=== PATIENT | male | born 2000 | race American Indian/Alaskan Native ===

== ENCOUNTER → 2021-01-27 12:45 | Emergency (ER) | payer MEDICAID ==
--- NOTE | 2021-01-27 15:55 | Emergency Department Report ---
Blank Doc - Documentation Documentation: I did not participate in the care of this patient.
== END | disposition left against medical advice (07) ==
LOC: ED 12:45
DX: Z04.1 Encounter for examination and observation following transport accident (principal); Z53.21 Procedure and treatment not carried out due to patient leaving prior to being seen by health care provider; V89.2XXA Person injured in unspecified motor-vehicle accident, traffic, initial encounter; Y93.89 Activity, other specified; Y92.89 Other specified places as the place of occurrence of the external cause; Y99.8 Other external cause status